=== PATIENT | male | born 1985 | race African-American/Black ===

== ENCOUNTER 2019-07-01 22:51 | Emergency (ER) | payer MEDICAID ==
[~2019-07-01] VITALS: Ht 185.4 cm; Wt 112.0 kg
[2019-07-02] MEDS ORDERED: ACETAMINOPHEN 325MG TABLET PO ONE (00:30)
[2019-07-02 02:20] VITALS: BP 152/76
== END 2019-07-02 02:23 | disposition home or self-care (01) ==
LOC: ER 23:50
DX: S62.647A Nondisplaced fracture of proximal phalanx of left little finger, initial encounter for closed fracture (principal); F17.210 Nicotine dependence, cigarettes, uncomplicated; W21.05XA Struck by basketball, initial encounter; Y93.67 Activity, basketball; Y92.89 Other specified places as the place of occurrence of the external cause
CPT/HCPCS: 29130; 73140; 99283

== ENCOUNTER 2025-05-19 20:48 | Emergency (ER) | payer OTHER, MEDICAID ==
[~2025-05-19] VITALS: Ht 177.8 cm; Wt 80.0 kg
[2025-05-19 20:58] VITALS: O2SAT 97
[2025-05-19] MEDS ORDERED: NAPR220C61 MT (22:12)
[2025-05-19] MEDS: KETOROLAC 30MG/ML VIAL IM ONE (22:58)
[2025-05-19 23:06] VITALS: BP 175/102; PULSE 97; RESP 11; TEMP 36.7; O2SAT 100
== END 2025-05-19 23:09 ==
LOC: ER 20:48
DX: S09.90XA Unspecified injury of head, initial encounter (principal); G89.11 Acute pain due to trauma; V89.2XXA Person injured in unspecified motor-vehicle accident, traffic, initial encounter; Y93.89 Activity, other specified; Y92.89 Other specified places as the place of occurrence of the external cause; Y99.8 Other external cause status
CPT/HCPCS: 80320; 36415; 71045; 70450; 72125; 96372; 99285; J1885; Z7610; G0480